=== PATIENT | female | born 1955 | race Caucasian/White ===

== ENCOUNTER 2017-12-18 19:51 | Emergency (ER) | payer OTHER ==
[~2017-12-18] VITALS: Ht 160 cm; Wt 104.3 kg
--- NOTE | ~2017-12-18 | EKG ---
[place] [address] [facility] [place] [address] ELECTROCARDIOGRAM REPORT Name: PEREZ BENJAMIN Room #: DEP [facility]#: [id number] Admission: 12/18/17 Attend Phys: Discharge: 12/18/17 Date of : 51 Report #: [id number] THIS REPORT FOR: //name// [facility] ED Test Date: 2017-12-18 Test Time: 20:15:59 Pat Name: PEREZ BENJAMIN Department: Room: Gender: F Systems Software Specialist: Nickie GUNN : 1955 Requested By: Onesimo Alvarez Order Number: [id number] MD: Josh Hollins Measurements Intervals [place] Rate: 76 P: 42 MA: 166 QRS: -2 QRSD: 95 T: 1 QT: 410 QTc: 462 Interpretive Statements Sinus rhythm Left ventricular hypertrophy Borderline T abnormalities, diffuse leads No previous ECG available for comparison Electronically Signed On 12-19-2017 7:49:52 BEHAVIORAL ANALYST by Josh Hollins [email or web address] <ELECTRONICALLY SIGNED> By: Josh Hollins MD, [facility] 12/19/17 0749 14 14 Josh Hollins MD, FACC /EPI
[~2017-12-18 19:51] MED LIST: ABILIFY15 MG PO; DEPAKOTE ER500 MG PO; LEXAPRO20 MG PO; METFORMIN HCL500 MG PO; OYSTER SHELL 51 EACH PO; PHENOBARBITAL64.8 MG PO; PHENOBARBITAL97.2 M2 PO; PRILOSEC20 MG PO; TRAZODONE HCL100 MG PO
[2017-12-18 20:25] LABS: ABSOLUTE NEUTROPHILS 5.2 thou/uL (1.4-8.2); BASOPHILS 0.8 % (0.0-2.0); EOSINOPHILS 1.4 % (0.0-3.0); HEMATOCRIT 39.2 % (37.0-47.0); HEMOGLOBIN 13.3 gm/dL (12.0-15.0); LYMPHOCYTES 30.5 % (24.0-44.0); MCH 30.9 pg (26.0-34.0); MCHC 33.8 g/dL (28.0-37.0); MCV 91.4 fL (80.0-100.0); MONOCYTES 6.9 % (1.0-8.0); PLATELET COUNT 296 thou/uL (150-400); POLYS 60.4 % (36.0-66.0); RBC 4.29 mil/uL (4.20-5.00); WBC 8.6 thou/uL (4.0-11.0)
[2017-12-18 20:49] LABS: URINE BLOOD 1+ (Negative); URINE CLARITY SL CLOUDY; URINE COLOR YELLOW; URINE GLUCOSE-RANDOM* NEGATIVE (Negative); URINE KETONES 1+ (Negative); URINE LEUKOCYTES-REFLEX NEGATIVE (Negative); URINE NITRITE-REFLEX NEGATIVE (Negative); URINE PROTEIN (DIPSTICK) NEGATIVE (Negative); URINE SPECIFIC GRAVITY 1.025 (1.005-1.035); URINE UROBILINOGEN 0.2 E.U./dl (0.2-1.0)
[2017-12-18 20:53] LABS: ICTOTEST (BILI CONFIRMATORY) Negative (Negative); URINE BILIRUBIN NEGATIVE (Negative)
[2017-12-18 21:02] LABS: CASTS None Seen /LPF (None Seen); CRYSTALS None Seen /LPF (None Seen); SQUAMOUS 4-10 Moderate /LPF (0-3)
[2017-12-18 21:03] LABS: BACTERIA-REFLEX >30 Many /HPF (None Seen); URINE RBC 0-2 Rare /HPF (0-2); URINE WBC-REFLEX 0-5 Rare /HPF (0-5)
[2017-12-18 21:12] LABS: ALBUMIN 3.3 g/dL (3.4-5.0); ANION GAP 6 mmol/L (7-16); BUN 22 mg/dL (7-18); CALCIUM 9.1 mg/dL (8.5-10.1); CHLORIDE 102 mmol/L (98-107); CO2 28 mmol/L (21-32); GLUCOSE 129 mg/dL (74-106); LIPASE 281 U/L (73-393); POTASSIUM 3.5 mmol/L (3.5-5.1); SGOT 35 U/L (15-37); SGPT 22 U/L (30-65); SODIUM 136 mmol/L (136-145); TOTAL BILIRUBIN 0.1 mg/dL (<0.1-1.0); TOTAL PROTEIN 8.4 g/dL (6.4-8.2); TROPONIN-I < 0.04 ng/mL (<0.06)
[2017-12-18] MEDS ORDERED: MACROBID 100 M100 M1 PO (21:33)
[2017-12-18] MEDS ORDERED: TESSALON PERLE100 MG PO (21:33)
[2017-12-18] MEDS ORDERED: TRAMADOL 50 MG50 MG PO (21:43)
[2018-07-23] MEDS ORDERED: AUGMENTIN 500-1 EACH PO (15:57)
[2018-07-23] MEDS ORDERED: MOBIC7.5 MG PO (16:00)
== END 2017-12-18 21:55 | disposition home or self-care (01) ==
LOC: ER 19:51
PROVIDERS: Physician Assistant
DX: J06.9 Acute upper respiratory infection, unspecified (principal); N39.0 Urinary tract infection, site not specified; G43.909 Migraine, unspecified, not intractable, without status migrainosus; F32.9 Major depressive disorder, single episode, unspecified; F10.99 Alcohol use, unspecified with unspecified alcohol-induced disorder

== ENCOUNTER 2018-05-20 21:05 | Emergency (ER) | payer OTHER ==
[~2018-05-20] VITALS: Ht 160 cm; Wt 108.9 kg
[~2018-05-20 21:05] MED LIST changes: +MACROBID 100 M100 M1 PO; +TESSALON PERLE100 MG PO; +TRAMADOL 50 MG50 MG PO
[2018-05-20 21:36] LABS: URINE BILIRUBIN NEGATIVE (Negative); URINE BLOOD NEGATIVE (Negative); URINE CLARITY CLEAR; URINE COLOR YELLOW; URINE GLUCOSE-RANDOM* NEGATIVE (Negative); URINE KETONES NEGATIVE (Negative); URINE LEUKOCYTES-REFLEX NEGATIVE (Negative); URINE NITRITE-REFLEX NEGATIVE (Negative); URINE PROTEIN (DIPSTICK) NEGATIVE (Negative); URINE SPECIFIC GRAVITY 1.015 (1.005-1.035); URINE UROBILINOGEN 0.2 E.U./dl (0.2-1.0)
[2018-05-20 22:07] LABS: ABSOLUTE NEUTROPHILS 5.7 thou/uL (1.4-8.2); BASOPHILS 0.8 % (0.0-2.0); EOSINOPHILS 1.3 % (0.0-3.0); HEMATOCRIT 36.7 % (37.0-47.0); LYMPHOCYTES 28.2 % (24.0-44.0); MCH 30.4 pg (26.0-34.0); MCHC 32.8 g/dL (28.0-37.0); MCV 92.7 fL (80.0-100.0); MONOCYTES 6.5 % (1.0-8.0); PLATELET COUNT 268 thou/uL (150-400); POLYS 63.2 % (36.0-66.0); RBC 3.96 mil/uL (4.20-5.00); RDW 14.4 % (10.5-14.5)
[2018-05-20 22:49] LABS: POTASSIUM 4.3 mmol/L (3.5-5.1)
[2018-05-20 22:55] LABS: ALBUMIN 2.9 g/dL (3.4-5.0); TOTAL BILIRUBIN 0.1 mg/dL (<0.1-1.0); TOTAL PROTEIN 7.6 g/dL (6.4-8.2)
[2018-05-20] MEDS ORDERED: ZOFRAN ODT4 MG PO (23:04)
[2018-05-20] MEDS ORDERED: BENTYL 20 MG TA20 M1 PO (23:09)
[2018-05-21 00:04] VITALS: BP 128/69
== END 2018-05-21 00:07 | disposition home or self-care (01) ==
LOC: ER 21:05
PROVIDERS: Physician Assistant
DX: R10.31 Right lower quadrant pain (principal); R11.0 Nausea; R19.7 Diarrhea, unspecified; F32.9 Major depressive disorder, single episode, unspecified

== ENCOUNTER 2019-07-06 22:36 | Emergency (ER) | payer OTHER ==
[~2019-07-06] VITALS: Ht 160 cm; Wt 99.3 kg
[~2019-07-06 22:36] MED LIST changes: +AUGMENTIN 500-1 EACH PO; +BENTYL 20 MG TA20 M1 PO; +MOBIC7.5 MG PO; +ZOFRAN ODT4 MG PO
[2019-07-07 00:03] LABS: ABSOLUTE NEUTROPHILS 5.2 thou/uL (1.4-8.2); EOSINOPHILS 0.5 % (0.0-3.0); HEMATOCRIT 37.2 % (37.0-47.0); HEMOGLOBIN 12.5 gm/dL (12.0-15.0); LYMPHOCYTES 35.2 % (24.0-44.0); MCH 31.7 pg (26.0-34.0); MCHC 33.6 g/dL (28.0-37.0); MCV 94.4 fL (80.0-100.0); MONOCYTES 6.1 % (1.0-8.0); PLATELET COUNT 282 thou/uL (150-400); POLYS 57.2 % (36.0-66.0); RBC 3.94 mil/uL (4.20-5.00); RDW 13.8 % (10.5-14.5); WBC 9.1 thou/uL (4.0-11.0)
[2019-07-07 00:09] LABS: ANION GAP 8 mmol/L (7-16); BUN 18 mg/dL (7-18); CALCIUM 9.4 mg/dL (8.5-10.1); CHLORIDE 101 mmol/L (98-107); CO2 29 mmol/L (21-32); CREATININE 0.9 mg/dL (0.6-1.0); GLUCOSE 94 mg/dL (74-106); SODIUM 138 mmol/L (136-145)
[2019-07-07 00:17] LABS: TROPONIN-I <0.06 ng/mL (<0.06)
[2019-07-07] MEDS ORDERED: PREDNISONE 20 M20 MG PO (00:36)
[2019-07-07] MEDS ORDERED: TESSALON PERLE100 MG PO (00:36)
[2019-07-07] MEDS ORDERED: VENTOLIN HFA INH8 GM INH (00:36)
[2019-07-07 00:39] VITALS: BP 132/42
--- NOTE | 2019-07-07 11:47 | EKG ---
[place] [address] [facility] [place] [address] ELECTROCARDIOGRAM REPORT Name: PEREZ BENJAMIN [facility] [id number] Admission: 07/06/19 Attend Phys: Discharge: 07/07/19 Date of : 51 Report #: [id number] THIS REPORT FOR: //name// [facility] ED Test Date: 2019-07-06 Test Time: 23:43:25 Pat Name: PEREZ BENJAMIN Department: Room: Gender: F Clinical Microbiologist: MANDA : 1955 Requested By: Eliel Monroy Order Number: [id number] MD: Salvador Duran Measurements Intervals [place] Rate: 72 P: 29 FL: 157 QRS: 9 QRSD: 82 T: 28 QT: 398 QTc: 436 Interpretive Statements Sinus rhythm LVH by voltage Compared to ECG 12/18/2017 20:15:59 T-wave abnormality no longer present Electronically Signed On 07-07-2019 11:47:03 CDT by Salvador Duran [email or web address] <ELECTRONICALLY SIGNED> By: Salvador Duran MD 07/07/19 1147 [id number] MD TURNER Lopez
== END 2019-07-07 00:46 | disposition home or self-care (01) ==
LOC: ER 22:36
PROVIDERS: Emergency Medicine
DX: J40 Bronchitis, not specified as acute or chronic (principal); F32.9 Major depressive disorder, single episode, unspecified

== ENCOUNTER 2020-02-07 20:42 | Emergency (ER) | payer OTHER ==
[~2020-02-07] VITALS: Ht 160 cm; Wt 102.5 kg
--- NOTE | ~2020-02-07 | EMS ---
[address] [address] EMS Patient Care Report Name: PEREZ BENJAMIN Room #: DEP [facility]#: [id number] Admission: 02/07/20 Attend Phys: Discharge: 02/07/20 Date of : 51 Report #: [id number] THIS REPORT FOR: //name// Report Transmitted: 02/08/2020 05:27 EMS Care Summary [place], [place]/[facility] Incident [id number] @ 02/07/2020 20:06 Incident Location [address] [place] [address] Patient PEREZ BENJAMIN Female, 64 Years 1955 Patient Address [address] [place] [address] Patient History None Reported, Patient Allergies No known allergies, Patient Medications None Reported, Chief Complaint ABDOMINAL PAIN Disposition Transported No Lights/[place] Dispatch Reason Sick Person Transported To [facility] Narrative PT STATES THAT PT HAS ABDOMINAL PAIN IS NAUSEATED AND HAS VOMITED. PT DENIES NAY RECENT FEVER. PT DENIES SOA. PT DENIES SHAI PAIN. PT HAS NO OTHER OBVIOUS ABNORMALITIES. [address] [address] EMS Patient Care Report Name: PEREZ BENJAMIN Room #: DEP [facility]#: [id number] Admission: 02/07/20 Attend Phys: Discharge: 02/07/20 Date of : 51 Report #: [id number] PT WAS FOUND WALKING TO THE AMBULANCE. PT SPOKE IN FULL AND COMPLETE SENTENCES.PT ABLE TO STAND AND PIVOT TO GET ONTO EMS COT. PT HAS NO OTHER OBVIOUS ABNORMALITIES. Initial Vitals @20:29P: 81,R: 18,BP: 131/72,Pain: 0/10,GCS: 15,SpO2: 91,Revised Trauma: 12, @20:28P: 82,R: 18,BP: 91/34,Pain: 0/10,GCS: 15,CO: 0,SpO2: 93,Revised Trauma: 12, Assessments @20:22MENTAL:Person Oriented,Time Oriented,Place Oriented,Event Oriented,SKIN:HEENT:Eyes: Left Pupil: 4-mm,Eyes: Right Pupil: 4-mm,Head/Face: No Abnormalities,Neck/Airway: No Abnormalities,LUNG SOUNDS:General: No Abnormalities,ABDOMEN:General: No Abnormalities,PELVIS//GI:EXTREMITIES:Capillary Refill: Right Upper: < 2 Sec,Left Arm: No Abnormalities,Right Arm: No Abnormalities,Left Leg: No Abnormalities,Right Leg: No Abnormalities,PULSE:Radial: 2+ Normal,NEURO:No Abnormalities, Impression Abdominal Pain Timeline 20:03,Call Received 20:03,Dispatch Notified 20:06,Dispatched 20:07,En Route 20:20,On Scene 20:21,At Patient 20:24,Depart Scene 20:28,BP: 91/34 M,PULSE: 82,RR: 18 R,SPO2: 93 Ox,ETCO2: ,BG: ,PAIN: 0,GCS: 15, 20:29,BP: 131/72 M,PULSE: 81,RR: 18 R,SPO2: 91 Ox,ETCO2: ,BG: ,PAIN: 0,GCS: 15, 20:46,At Destination 20:53,Call Closed Disclaimer v1.1 Copyright 2020 [employer] This EMS Care Summary contains data elements from the applicable legal record (which may be displayed differently). It is designed to provide pertinent information for the following purposes: continuity of care, clinical quality, and state data reporting. The complete legal record is available to ED staff and administrators of the receiving hospital in [employer] Patient Tracker. All data is provided "as is."
[~2020-02-07 20:42] MED LIST changes: +PREDNISONE 20 M20 MG PO; +VENTOLIN HFA INH8 GM INH
[2020-02-07 21:12] LABS: ABSOLUTE NEUTROPHILS 3.8 thou/uL (1.4-8.2); BASOPHILS 0.6 % (0.0-2.0); EOSINOPHILS 1.1 % (0.0-3.0); HEMATOCRIT 38.6 % (37.0-47.0); HEMOGLOBIN 12.6 gm/dL (12.0-15.0); LYMPHOCYTES 40.8 % (24.0-44.0); MCH 30.7 pg (26.0-34.0); MCHC 32.8 g/dL (28.0-37.0); MCV 93.7 fL (80.0-100.0); MONOCYTES 6.6 % (1.0-8.0); PLATELET COUNT 314 thou/uL (150-400); POLYS 50.9 % (36.0-66.0); RBC 4.11 mil/uL (4.20-5.00); WBC 7.5 thou/uL (4.0-11.0)
[2020-02-07 21:21] LABS: CALCIUM 8.5 mg/dL (8.5-10.1); CREATININE 0.8 mg/dL (0.6-1.0); POTASSIUM 3.9 mmol/L (3.5-5.1)
[2020-02-07 21:26] LABS: ALBUMIN 3.3 g/dL (3.4-5.0); TOTAL BILIRUBIN 0.1 mg/dL (<0.1-1.0); TOTAL PROTEIN 7.7 g/dL (6.4-8.2)
[2020-02-07 22:02] LABS: URINE BILIRUBIN NEGATIVE (Negative); URINE BLOOD TRACE (Negative); URINE CLARITY CLEAR; URINE COLOR YELLOW; URINE GLUCOSE-RANDOM* NEGATIVE (Negative); URINE KETONES NEGATIVE (Negative); URINE LEUKOCYTES-REFLEX NEGATIVE (Negative); URINE NITRITE-REFLEX NEGATIVE (Negative); URINE PROTEIN (DIPSTICK) NEGATIVE (Negative); URINE SPECIFIC GRAVITY 1.025 (1.005-1.035); URINE UROBILINOGEN 0.2 E.U./dl (0.2-1.0)
[2020-02-07] MEDS ORDERED: PROBIOTIC1 EAC7 PO (22:14)
[2020-02-07] MEDS ORDERED: BENTYL 20 MG TA20 M1 PO (22:14)
[2020-02-07 22:33] VITALS: BP 128/50
== END 2020-02-07 22:35 | disposition home or self-care (01) ==
LOC: ER 20:42
PROVIDERS: Nurse Practitioner Family
DX: K52.9 Noninfective gastroenteritis and colitis, unspecified (principal); Z79.899 Other long term (current) drug therapy

== ENCOUNTER 2020-07-31 17:50 | Emergency (ER) | payer OTHER ==
[~2020-07-31] VITALS: Ht 68.6 cm; Wt 95.3 kg
[~2020-07-31 17:50] MED LIST changes: +PROBIOTIC1 EAC7 PO
[2020-07-31] MEDS ORDERED: DEPAKOTE ER500 M1 PO (19:31)
[2020-07-31] MEDS ORDERED: PHENOBARBITAL97.2 M2 PO (19:32)
[2020-07-31 19:44] VITALS: BP 133/56
== END 2020-07-31 19:45 | disposition home or self-care (01) ==
LOC: ER 17:50
DX: G40.89 Other seizures (principal); Z79.899 Other long term (current) drug therapy

== ENCOUNTER 2021-05-15 21:32 | Emergency (ER) | payer OTHER ==
[~2021-05-15] VITALS: Ht 160 cm; Wt 95.3 kg
[~2021-05-15 21:32] MED LIST changes: +DEPAKOTE ER500 M1 PO
[2021-05-15] MEDS ORDERED: MOBIC15 MG PO (22:49)
== END 2021-05-15 23:43 | disposition home or self-care (01) ==
LOC: ER 21:32
DX: S93.401A Sprain of unspecified ligament of right ankle, initial encounter (principal); M25.561 Pain in right knee; R07.89 Other chest pain; G40.909 Epilepsy, unspecified, not intractable, without status epilepticus; F32.9 Major depressive disorder, single episode, unspecified; Z79.899 Other long term (current) drug therapy; W19.XXXA Unspecified fall, initial encounter; Y93.89 Activity, other specified; Y92.89 Other specified places as the place of occurrence of the external cause; Y99.8 Other external cause status

== ENCOUNTER 2021-08-10 16:05 | Inpatient (IN) | payer OTHER ==
[~2021-08-10] VITALS: Ht 160 cm; Wt 104.8 kg
--- NOTE | ~2021-08-10 | EEG ---
[facility] [place] [address] ELECTROENCEPHALOGRAM Name: PEREZ BENJAMIN Room #: 447-P ADM IN M.R.#: [id number] Admission: 08/10/21 Attend Phys: Elmer Herrera MD Discharge: Date of : 51 Report #: [id number] THIS REPORT FOR: //name// DATE OF SERVICE: 08/14/2021 This patient is being evaluated for the possibility of seizure. EEG was done by placing the electrode by standard 10-20 system of electrode placement. Both referential and sequential montages were used for recording. Background activity in this patient's EEG is about 9 Hz and 30 microvolt. The patient went to sleep that is associated with bilateral slowing and vertex sharp waves. Photic stimulation is unremarkable. Throughout the record, no active epileptiform activity was noticed. IMPRESSION: This EEG is intermixed with some theta range slowing on both sides. There is a nonspecific abnormality which can occur with encephalopathy, effect of psychotropic medication, dementia, drowsiness, etc. No active epileptiform activity was noticed. Thank you very much for this referral. By: 1106 1220 Leodan Tee MD /nt
--- NOTE | ~2021-08-10 | HC ---
[facility] [place] [address] CONSULTATION Name: PEREZ BENJAMIN Room #: 447-P ADM IN .R.#: [id number] Admission: 08/10/21 Attend Phys: Elmer Herrera MD Discharge: Date of : 51 Report #: [id number] THIS REPORT FOR: cc: Cookie Rasmussen DNP, Mary E. DNP Khosla, Parveen K. MD ~ DATE OF SERVICE: 08/14/2021 HISTORY OF PRESENT ILLNESS: This is a 66-year-old female patient who was discussed with Dr. Joe. I talked to the nurse looking after this patient. I talked to the pharmacist and discussed the patient with him. This patient says that she has seizures since . She does not know the etiology of it. She used to see a neurologist, but has not seen a neurologist for some time. She has taken phenobarbital virtually all her life. They have tried to convert it to some other form of seizure medication, but she either could not tolerate it or it was ineffective. She also takes Depakote, but only a small dose. Neurology consultation is requested because pharmacy does not carry phenobarbital and they do carry IV phenobarbital and hospitalist felt uncomfortable giving the patient phenobarbital IV. She says the seizures are frequent, but if she takes phenobarbital, she does not have any seizures at all. She has seizure. She has bit her tongue. REVIEW OF SYSTEMS: Also positive for cerebral palsy, diabetes, depression and epilepsy. She also has some musculoskeletal abnormality of the right leg and now she has a fracture there. PAST MEDICAL HISTORY: Positive for seizure. FAMILY HISTORY: Positive for seizure. SOCIAL HISTORY: She says she does not drink alcohol on a regular basis. PHYSICAL EXAMINATION: Indicate she is alert, responsive, able to follow simple commands. Her speech looks intact. Cranial nerve examination II-XII looks unremarkable. Neuromuscular examination is difficult because of the patient's fracture. She feels everything is baseline except the right leg. No cardiac or respiratory changes. She is morbidly obese. Blood pressure is 129/62, respirations 16, pulse is 86, temperature is 99.4. She said she had imaging study multiple times and one of them was recently a few months ago. I do not know where it was done. She does not know where it was done either. IMPRESSION: It is very difficult to tell if the patient has all the epileptic seizure or some of those seizures were nonepileptiform event. That question need to be addressed as an outpatient. Presently, I will leave her on the same [address] [address] CONSULTATION Name: PEREZ BENJAMIN Room #: 447-P [facility] IN ..#: [id number] Admission: 08/10/21 Attend Phys: Elmer Herrera MD Discharge: Date of : 51 Report #: [id number] phenobarbital dosages. If she did not have any imaging study of the brain, we can do that, but I will get an EEG done to see if she has any active seizure activity. We made a lot of effort and I talked to the pharmacist myself. He said he will try, but he does not think he can get the phenobarbital even from other pharmacy. The patient made multiple calls and ultimately she was able to convince some of the relative to bring the medication. If they do that, that problem will be solved but as an outpatient, the question need to be addressed if they are all seizure or some of them are non-epileptiform event and if she does not have any imaging study of the brain that can be done to complete the workup. More than 50 minutes of time was spent taking care of this patient today and majority was spent counseling and coordinating care. By: 1201 1856 Leodan Tee MD /nt
[~2021-08-10 16:05] MED LIST changes: +MOBIC15 MG PO
[2021-08-10 16:08] VITALS: BP 133/91
[2021-08-11 01:10] LABS: BASOPHILS 0.4 % (0.0-2.0); EOSINOPHILS 0.4 % (0.0-3.0); HEMOGLOBIN 11.1 gm/dL (12.0-15.0); LYMPHOCYTES 36.2 % (24.0-44.0); MCH 32.2 pg (26.0-34.0); MCHC 33.6 g/dL (28.0-37.0); MCV 95.6 fL (80.0-100.0); MONOCYTES 8.9 % (1.0-8.0); PLATELET COUNT 249 thou/uL (150-400); POLYS 54.1 % (36.0-66.0); RBC 3.46 mil/uL (4.20-5.00); RDW 14.3 % (10.5-14.5); WBC 9.3 thou/uL (4.0-11.0)
[2021-08-11 01:14] LABS: CALCIUM 7.8 mg/dL (8.5-10.1); CREATININE 0.7 mg/dL (0.6-1.0); POTASSIUM 3.9 mmol/L (3.5-5.1)
--- NOTE | 2021-08-11 07:00 | NUR ---
faxed ed summary to [facility].
--- NOTE | 2021-08-11 07:17 | NUR ---
TOOK OVER CARE FROM JADE LUQUE AT THIS TIME
[2021-08-11 07:20] VITALS: BP 115/55
--- NOTE | 2021-08-11 14:34 | NUR ---
PT ARRIVED ON FLOOR AROUND 0900. PT ALERT X ORIENTED X 4. ON 2L/O2/NC.FRACTURED RT ANKLE, ICE PACK APPLIED AND ANKLE RAISED ABOVE THE HEART LEVEL. IV RT AC WITH NS/80MLS/HR. NPO. PAIN PARTIALLY CONTROLLED BY PAIN MEDICINE. FALL PRECAUTION IN PLACE. GIVEN REPODT TO OR NURSE, MAY BE HAVING SURGERY AFTER 1600. ON SEIZURE PRECAUTION. RN LET DR. CATALAN AROUND 1130 THAT PT IS ON SEIZURE MEDICATION AT HOME, SAID HE WILL PUT AN ORDER IN THE EMAR. PUT AN ORDER FOR DIVALPROEX AROUND 1330. WAITING TO RECEIVE IT FROM PHARMACY(TALKED TO PHARMACIST AROUND 1430)
--- NOTE | 2021-08-11 15:32 | NUR ---
PT ADMITTED RELATED TO RIGHT ANKLE FRACTURE S/P FALL. CM MET WITH PT AT BEDSIDE THIS DAY. PT APPEARED TO BE A&O X4. CM ROLE INTRODUCED. PT INDICATED THAT SHE LIVES ALONE IN AN APARTMENT WITH ELEVATOR ACCESS. SHE INDICATED SHE HAD BEEN USING A 4[facility] TO ASSIST WITH MOBILITY E TAILER. PT INDICATED SHE HAD BEEN INDEPENDENT WITH GAIT AND ADLS E TAILER. PT INDICATED SHE HAS HOMEMAKER SERVICES THROUGH [employer]. ORTHO IS PLANNING TO DO AN ORIF AND INDICATED THAT PT WILL BE NWB FOR 6 WEEKS POST PROCEDURE. CM INDICATED THIS TO PT AND ASKED IF SHE WOULD BE RECEPTIVE TO POST ACUTE CARE STAY IF RECOMMENDED UPON DC AND PT INDICATED SHE WOULDN'T BE. SHE INDICATED SHE WANTS A WC AND PLANS TO RETURN HOME WITH HER FRIEND WHO IS CURRENTLY STAYING WITH HER. SHE INDICATED HER SON KLAUDIA BENJAMIN IS HER EMERGANCY CONTACT . CM FOLLOWING REGARDING DC PLANNING.
[2021-08-11 16:38] VITALS: BP 128/42
[2021-08-11 19:13] VITALS: BP 147/50
--- NOTE | 2021-08-12 02:29 | NUR ---
PT CARE ASSUMED WITH PT IN BED WATCHING TV AT 1900.PT IS A/O X4.PT IS ON BEDREST AND X2 ASSIST WITH CARE.PT HAS AN IMMOBILIZER ON RT LE.PT NPO FROM MIDNIGHT.IV ACCESS ON RT AC WITH NS AT 100CC/HR.PAIN WITH MOVEMENT.PT ON 2L OF O2 VIA NC.WILL CONTINUE TO MONITOR PER POC
[2021-08-12 04:50] VITALS: BP 119/62
[2021-08-12 07:48] VITALS: BP 121/54
--- NOTE | 2021-08-12 15:16 | NUR ---
TODAY THIS PT HAS BEEN DOWN IN SURGERY SINCE 1100 A.M. FOR HER R ANKLE. SHE HAD BEEN TAKING HER MEDICATIONS FINE WITH NO STATED PAIN AND STABLE VS. SHE HAS USED THE BEDPAN ONCE BEFORE SHE WENT DOWN TO SURGERY AND HAS OTHERWISE BEEN ASLEEP BEFORE SHE WENT DOWN TO SURGERY.
--- NOTE | 2021-08-12 15:53 | NUR ---
PT WENT FOR ORIF THIS AFTERNOON. PT AN OT TO ASSESS POST PROCEDURE. CM FOLLOWING REGARDING DC PLANNING.
[2021-08-12 18:00] VITALS: BP 141/62
--- NOTE | 2021-08-12 18:17 | O ---
[address] [address] OPERATIVE REPORT Name: PEREZ BENJAMIN Room #: 450-P ADM IN M.R.#: [id number] Admission: 08/10/21 Attend Phys: Elmer Herrera MD Discharge: Date of : 51 Report #: [id number] THIS REPORT FOR: cc: Cookie Rasmussen DNP, Mary E. DNP McCabe, Michael P. MD ~ DATE OF SERVICE: 08/10/2021 SERVICE: Orthopedics. FACILITY: [facility]. SURGEON: Eliel Luna MD CONCRETE CARPENTER: Savanna Saravia NP INDICATIONS FOR CONCRETE CARPENTER: Extremities positioning, provisional fixation, provisional reduction and wound closure and assistance with splinting. PREOPERATIVE DIAGNOSES: 1. Status post same level fall. 2. Right ankle trimalleolar fracture dislocation. 3. Morbid obesity with body mass index of 41. 4. Diabetes. POSTOPERATIVE DIAGNOSES: 1. Status post same level fall. 2. Right ankle trimalleolar fracture dislocation. 3. Morbid obesity with body mass index of 41. 4. Diabetes. PROCEDURE PERFORMED: Open reduction internal fixation right trimalleolar ankle fracture dislocation with medial and lateral fixation. COMPLICATIONS: None. DRAINS: None. SPECIMENS: None. ANESTHESIA: General. IMPLANTS: Hawk and Nephew locking 3.5/2.7 mm distal fibular locking plate laterally with 4-0 cannulated screws medially. HISTORY: The patient presented to the [facility] after falling [address] [place] [address] OPERATIVE REPORT Name: PEREZ BENJAMIN Room #: 450-P [facility] IN ..#: [id number] Admission: 08/10/21 Attend Phys: Elmer Herrera MD Discharge: Date of : 51 Report #: [id number] while getting into her car. She sustained an ankle fracture dislocation. She underwent closed reduction and splinting, was admitted to the hospital. She is indicated for surgical treatment. Risks, benefits, alternatives and indications were discussed with her in detail. Risks include but are not limited to pain, bleeding, infection, malunion, nonunion, injury to nerves or blood vessels, persistent pain despite surgical repair, stiffness, need for further surgery as well as complications related to anesthesia up to and including mortality. Despite the risks, she wished to proceed. PROCEDURE IN DETAIL: After right lower extremity was correctly identified in the preoperative holding area as the operative extremity, the patient was taken to the operating room. General anesthesia was induced without complication. She was padded appropriately. Prophylactic antibiotics were administered in appropriate time. Tourniquet was applied to right leg. Right lower extremity was then prepped and draped in standard sterile fashion. Timeout procedure performed. Esmarch was used, tourniquet inflated to 300 mmHg. A standard lateral approach was made to the ankle after localization of the fracture level was performed with the C-arm. The patient has morbid obesity and has a significant soft tissue envelope around the ankle that is quite deep. An additional incision, soft tissue work was required in order to protect vital structures and exposure. Full-thickness skin flaps were developed and the dissection was taken down to the fibula. Fracture was evaluated and opened. It was debrided of fracture hematoma and a provisional reduction maneuver was performed. There was a very comminuted fracture at the level of the anterior tibiofibular ligament. There was comminution here and there was a displaced cortical fragment anteriorly. There was a cortical flowers posteriorly, but because of the comminution anteriorly, there was not enough bone to perform a lag screw for provisional fixation and so I could not do a lag screw with a neutralization plate unfortunately. The comminution required that the fracture be established to length and then reduced and then plated in a bridge fashion with the locking plate with hybrid fixation. First to reestablish length, I used a fracture reduction clamp to anatomically reduce the fracture, but as stated, there was not enough bony real estate to accommodate an interfragmentary compression screw and so I confirmed the reestablishment of the length of the fibula and ran a K-wire across the distal segment into the talus to hold the length. We then selected a 5-hole Hawk and Nephew 3.5/2.7 mm distal fibular locking plate and placed that on the lateral aspect of the ankle. With the provisional fixation in place, the C-arm was brought in. I assessed the reduction and the hardware position on multiple planes of x-ray to confirm it was in the appropriate position. The reduction was anatomic at this point, so the plate was then fixed to the distal segment with the locking screws initially and then with the k-wire in place, the length had been reestablished. I then placed a nonlocking screw on the shaft proximally and compressed the plate to the shaft. With the orientation of the fracture, although I could not perform an interfragmentary compression screw, I was able to lag the fracture through the plate at the [facility] [address] [place] [address] OPERATIVE REPORT Name: PEREZ BENJAMIN Room #: 450-P ADM IN M.Tomasz.#: [id number] Admission: 08/10/21 Attend Phys: Elmer Herrera MD Discharge: Date of : 51 Report #: [id number] distal two shaft screw holes and this provided compression across the fracture and restored the anatomic reduction and then the remaining screws placed in the shaft and in the distal segment were locking screws. The cortical fragment anteriorly had a portion of the anterior tibiofibular ligament on it and it was necessary for stability and was cortical over basically the anterior one-third of the fibula in this location and had avulsed, so I felt that a reduction of this was important. This had been reflected anteriorly to allow access to the join, to irrigate the joint and debride any ligamentous tissue and capsular tissue. This was then flipped back down and then reduced and held, reduced manually. Then, I used a 1.6 mm K-wire and advanced it across the fracture in a proximal anterior to distal posterior orientation using fluoroscopy to assist. I was happy with the position and then cut the wire just short of it penetrating the far cortex and then I used a reinforcing steel worker wire mesh to bend the wire down at the fibula and then malleted down and compressed it into the bone, providing a stable fixation with the curved pin placed to prevent rotation of the pin and the fracture. The final screws were then placed and I assessed the reduction on x-ray as well as the fibular length and was happy with the appearance. The cotton test was performed and was negative. A longitudinal incision was then made based over the medial side of the ankle and full-thickness skin flaps were developed. Dissection was taken down to the fracture. The obliquity of the fracture was such that medial malleolar cannulated compression screws will provide optimal and satisfactory fixation, so I displaced the fracture, irrigated the joint and the fracture hematoma. There was some ligamentous and synovial tissue that was resected with a rongeur. There was a loose chondral fragment from the medial talus that unfortunately needed to be resected as well and then the joint was irrigated once more. I then manually reduced the medial malleolus and then in a percutaneous fashion, ran two K-wires across the fracture. I confirmed the position of these K-wires under fluoroscopy on multiple views including a cross table lateral and then overdrilled the near cortex and then advanced the cannulated partially-threaded Hawk and Nephew screws across the fracture. Her bone quality is good, so I did not need any stronger screw fixation such as cortical screws across the tibia or larger screws. Final x-rays were taken after the completed repair was carefully evaluated. I was happy with the appearance on AP, lateral and mortise view confirming that the hardware was all appropriately positioned. The ankle was thoroughly irrigated. The skin was closed with 2-0 Vicryl followed by skin elisha. The percutaneous stab incisions for the medial screws were closed with nylon. A sterile well-padded short-leg splint was then applied and then the patient was awakened from anesthesia and taken to recovery room in stable condition. There were no complications. All counts were reported as correct. POSTOPERATIVE PLAN: She will be nonweightbearing for 6 weeks. She will be in the splint until her first postoperative visit around [address] [address] OPERATIVE REPORT Name: PEREZ BENJAMIN Room #: 450-P [facility] IN .R.#: [id number] Admission: 08/10/21 Attend Phys: Elmer Herrera MD Discharge: Date of : 51 Report #: [id number] We will take the splint down, remove the elisha and then switch her to a short-leg cast, which she will wear until the end of the 6 weeks. <ELECTRONICALLY SIGNED> By: Eliel Luna MD 08/12/21 1817 1508 1630 Eliel Luna MD /nt
[2021-08-12 19:04] VITALS: BP 148/68
--- NOTE | 2021-08-13 02:22 | NUR ---
PT CARE ASSUMED WITH PT IN BED WATCHING TV.PT IS A/O X4.PT IS UP WITH X2 ASSIST AND HAS AN IMMOBILIZER ON RT LE .PT USES A BEDPAN TO VOID.PT CALLS FOR HELP APPROPRIETELY.PT ON 2L OF O2 VIA NC.PT IS ACCUCHECK ACHS.PT 4 SIDE RAILS UP AND PADDED FOR SEIZURE PRECAUTION.IV ACCESS ON RT AC WITH NS AT 80CC/HR.WILL CONTINUE TO MONITOR PER POC
[2021-08-13 05:18] LABS: HEMATOCRIT 32.1 % (37.0-47.0); HEMOGLOBIN 10.7 gm/dL (12.0-15.0); MCH 31.8 pg (26.0-34.0); MCHC 33.4 g/dL (28.0-37.0); MCV 95.3 fL (80.0-100.0); RBC 3.37 mil/uL (4.20-5.00); RDW 13.8 % (10.5-14.5); WBC 7.8 thou/uL (4.0-11.0)
[2021-08-13 05:34] LABS: CALCIUM 8.1 mg/dL (8.5-10.1); CREATININE 0.6 mg/dL (0.6-1.0); POTASSIUM 3.6 mmol/L (3.5-5.1)
[2021-08-13 06:03] VITALS: BP 132/51
[2021-08-13 07:38] VITALS: BP 126/46
--- NOTE | 2021-08-13 11:34 | NUR ---
PT HAD ANKLE ORIF YESTERDAY. PT SAW HIM THIS AM AND SHE INDICATED THAT SHE IS NOW RECEPTIVE TO SKILLED POST ACUTE CARE STAY. CM PROVIDED [facility] DUAL COMPLETE SNF LIST FOR REVIEW. CM TO FOLLOW UP AND FAX REFERRALS SHE REQUESTS. CM FOLLOWING REGARDING DC PLANNING.
--- NOTE | 2021-08-13 14:53 | NUR ---
TODAY THIS PT HAS HAD SOME STATED PAIN IN WHICH SHE HAS BEEN MEDICATED FOR. PHYSICIAN WAS CALLED ABOUT THE FIRST DRESSING CHANGE ON HER ANKLE AND THE RESPONSE WAS THAT THEY ARE GOING TO CHANGE THE DRESSING AT HER FIRST FOLLOW UP OFFICE VISIT. SHE HAS OTHERWISE BEEN ON AND OFF SLEEP SHE REALLY HASN'T EATEN ANY MEALS TODAY BESIDES THE FRUIT. SHE HAS BEEN SEEN BY PHYSICAL THERAPY AND SHE HAS AGREED UPON PLACEMENT DUE TO HER NON BEARING ON HER RIGHT ANKLE. SHE OTHERWISE AWAITS FOR THE NEXT PLAN.
[2021-08-13 15:47] VITALS: BP 128/43
[2021-08-13 20:14] VITALS: BP 124/48
--- NOTE | 2021-08-14 01:24 | NUR ---
ASSUMED CARE OF PT AT SHIFT CHANGE. PT IS AOX3-4 AND LETS NEEDS BE KNOWN. FALL PRECAUTION IN PLACE. PT IS NWB IN RLE. RLE SPLINT IN PLACE. PT PREPORTS RLE PAIN BUT IS ABLE TO SLEEP. PT DENIED NAUSEA. 2L O2 VIA NC CONTINUED. PT WAS ABLE TO VOID AND HAVE A BM VIA BEDPAIN. IVF CONTINUED. PT WAS ABLE TO GET COMFORTABLE AND SLEEP PART OF THE SHIFT. VSS AND NO S/S OF ACUTE DISTRESS. WILL CONTINUE TO MONITOR.
[2021-08-14 07:22] VITALS: BP 129/62
[2021-08-14 13:02] LABS: ABSOLUTE NEUTROPHILS 4.1 thou/uL (1.4-8.2); BASOPHILS 1.2 % (0.0-2.0); EOSINOPHILS 0.4 % (0.0-3.0); HEMATOCRIT 29.1 % (37.0-47.0); HEMOGLOBIN 9.6 gm/dL (12.0-15.0); LYMPHOCYTES 32.8 % (24.0-44.0); MCHC 33.2 g/dL (28.0-37.0); MCV 96.4 fL (80.0-100.0); MONOCYTES 11.2 % (1.0-8.0); PLATELET COUNT 227 thou/uL (150-400); POLYS 54.4 % (36.0-66.0); RBC 3.01 mil/uL (4.20-5.00); WBC 7.5 thou/uL (4.0-11.0)
[2021-08-14 13:11] LABS: ALBUMIN 2.2 g/dL (3.4-5.0); CALCIUM 7.9 mg/dL (8.5-10.1); CREATININE 0.6 mg/dL (0.6-1.0); MAGNESIUM 1.9 mg/dL (1.8-2.4); POTASSIUM 3.6 mmol/L (3.5-5.1); TOTAL BILIRUBIN 0.2 mg/dL (0.2-1.0); TOTAL PROTEIN 6.3 g/dL (6.4-8.2)
[2021-08-14 15:21] VITALS: BP 133/51
--- NOTE | 2021-08-14 17:31 | NUR ---
PT RECEIVED FROM [facility] AT CHANGE OF SHIFT. PER REPORT PT INSTUCTED TO HAVE FAMILY BRING IN HER [facility] FOR[facility]. PT STATED THERE WAS NO FAMILY TO BRING MED AND SHE WAS FEELING DIZZY LIKE SHE SOMETIMES FEELS BEFORE A SEIZURE. SEIZURE PRECAUTIONS IN PLACE. NOTIFIED OF ABOVE AND DR. ACUNA CONSULTED. PT REFUSING TO TAKE KEPPRA WHILE SHE IS HERE. DIZZINESS STOPPED AND NO SEIZURE ACTIVITY NOTED OR STATED PER PT. EEG COMPLETED AT BEDSIDE. PT STATES STILL NO ONE TO BRING IN HER OWN MED. PAIN CONTROLLED W/ PAIN MED. EATING AND DRINKING WELL. USING BEDPAN.
[2021-08-14 21:40] VITALS: BP 115/46
[2021-08-15 05:46] VITALS: BP 140/56
--- NOTE | 2021-08-15 05:57 | NUR ---
PT STAYED UP TO 0300AM WATCHING TV, REPORTED PAIN ON THE LEFT FOOT, PRN MEDICATION ADMINISTERED, CONSIDERED TO SLEEP AT 0340AM. TOOK MEDICATIONS WELL NO ADVERSE REACTION NOTED, WILL CONTINUE TO MONITOR.
[2021-08-15 08:25] VITALS: BP 136/56
[2021-08-15 10:52] LABS: HEMATOCRIT 29.3 % (37.0-47.0); HEMOGLOBIN 9.6 gm/dL (12.0-15.0); MCH 31.7 pg (26.0-34.0); MCHC 32.9 g/dL (28.0-37.0); MCV 96.4 fL (80.0-100.0); RBC 3.04 mil/uL (4.20-5.00); RDW 13.8 % (10.5-14.5); WBC 6.9 thou/uL (4.0-11.0)
--- NOTE | 2021-08-15 11:10 | NUR ---
A/O X 4. 2 L O2 VIA NASAL CANNULA. BEDBOUND. NONWEIGHT BEARING RIGHT FOOT. RIGHT FOOT/ANKLE WRAPPED WITH KERLIX, ROSEANN WRAP-NO DRAINAGE NOTED ON DRESSING. EDEMA RIGHT FOOT. CAP REFILL BILATERAL TOES <3 SECS. NS INFUSING @ 80 MLS/HR VIA LEFT HAND IV, IV DRESSING DRY, CLEAN, AND INTACT. BS @ BREAKFAST 130. PAIN NOTED 10/10 RIGHT, OXYCODONE 10 MG GIVEN FOR PAIN. ON SEIZURE PRECAUTIONS, 02 ON, 4 BED RAILS UP AND PADDED. PATIENTS FRIEND WILL BE BRINGING HER PHENOBARBITAL UP. STILL AWAITING MEDICATION.
[2021-08-15 11:43] LABS: CALCIUM 8.2 mg/dL (8.5-10.1); CREATININE 0.5 mg/dL (0.6-1.0); POTASSIUM 3.8 mmol/L (3.5-5.1)
[2021-08-15 12:23] LABS: FOLIC ACID 9.9 ng/mL (8.6-58.9)
[2021-08-15] MEDS ORDERED: ASPIRIN EC325 M1 PO (14:31)
[2021-08-15] MEDS ORDERED: OXYCODONE HCL 55 MG PO (14:31)
[2021-08-15] MEDS ORDERED: PEPCID20 MG PO (14:32)
[2021-08-15] MEDS ORDERED: ACETAMINOPHEN325 M1 PO (14:32)
[2021-08-15 14:37] VITALS: BP 132/52
--- NOTE | 2021-08-15 15:08 | NUR ---
PER CASE MANAGEMENT. ALL TRANSPORT COMPANIES EXHAUSTED. NO AVAILABILITY TO TRANSPORT PATIENT TO [facility] TODAY. WILL SET UP TRANSPORT FOR DISCHARGE TOMORROW.
[2021-08-16 04:06] LABS: GLYCOHEMOGLOBIN (HGB A1C) 5.8 % (4.8-5.6)
== END 2021-08-15 17:57 | DRG 493 ==
LOC: ER 16:05 → EROBS 23:01 → 4W 23:01 → EROBS 23:02 → 4W 08-11 08:08 → 4S 08-14 06:56
PROVIDERS: Internal Medicine; Nurse Practitioner; ADMIT Hospitalist; ATTEND Hospitalist
DX: S82.851A Displaced trimalleolar fracture of right lower leg, initial encounter for closed fracture (principal); Z68.41 Body mass index [BMI] 40.0-44.9, adult; G40.909 Epilepsy, unspecified, not intractable, without status epilepticus; E11.9 Type 2 diabetes mellitus without complications; G80.9 Cerebral palsy, unspecified; D64.9 Anemia, unspecified; F41.9 Anxiety disorder, unspecified; E66.01 Morbid (severe) obesity due to excess calories; F32.9 Major depressive disorder, single episode, unspecified; W01.0XXA Fall on same level from slipping, tripping and stumbling without subsequent striking against object, initial encounter; Z20.822 Contact with and (suspected) exposure to COVID-19; Z86.69 Personal history of other diseases of the nervous system and sense organs; Y92.89 Other specified places as the place of occurrence of the external cause; Y99.8 Other external cause status; Y93.89 Activity, other specified; Z79.899 Other long term (current) drug therapy
CPT/HCPCS: 10040; 10195; 50010; 50101; 50386; 51412; 51741; 56527; 56528; 57091; 57180; 58473; 58475; 58526; 58527; 58987; 58988; 58989; 58990; 58991; 58992; 58993; 58994; 58995; 58996; 58997; 58998; 62110; 62900; 70005

== ENCOUNTER → 2021-12-24 | Outpatient (CLI) | payer OTHER ==
[~2021-12-24] MED LIST changes: +ACETAMINOPHEN325 M1 PO; +ASPIRIN EC325 M1 PO; +OXYCODONE HCL 55 MG PO; +PEPCID20 MG PO
== END ==
LOC: ULTRA 10:11
PROVIDERS: ATTEND Nurse Practitioner
DX: R60.0 Localized edema (principal)

== ENCOUNTER 2022-01-18 19:50 | Inpatient (IN) | payer OTHER ==
[~2022-01-18] VITALS: Ht 160 cm; Wt 95.9 kg
--- NOTE | ~2022-01-18 | EMS ---
[address] [address] EMS Patient Care Report Name: FELICITY BENJAMIN Room #: 462-P ADM IN M.R.#: [id number] Admission: 01/18/22 Attend Phys: Oliver Quiros DO Discharge: Date of : 51 Report #: [id number] THIS REPORT FOR: //name// Report Transmitted: 01/19/2022 05:46 EMS Care Summary [place], [place]/[facility] Incident [id number] @ 01/18/2022 18:51 Incident Location [id number] [place] [address] [address] Patient FELICITY BENJAMIN Female, 66 Years 1955 Patient Address [address] [place] [address] [place] [address] Patient History Epilepsy,Surgery,Depression, Patient Allergies No known allergies, Patient Medications Abilify, Trazodone, Phenobarbital, Chief Complaint Several falls over the last three days Disposition Transported No Lights/[place] Dispatch Reason Falls Transported To [facility] Narrative [facility] medic 41 was dispatched emergently to a residence for a fall. Upon arrival at the scene, this harvest supervisor and crew were granted access to the facility by another resident. This crew went to the patients' apartment door [address] [address] EMS Patient Care Report Name: FELICITY BENJAMIN Room #: 462-P ADM IN Shan#: [id number] Admission: 01/18/22 Attend Phys: Oliver Quiros DO Discharge: Date of : 51 Report #: [id number] and gained access with a flowers provided by a resident. Upon entering the residence a strong odor was noticed. The patient was found lying supine in her bed. As this harvest supervisor approached, the patient tracked and responded appropriately. The patients' mental status was immediately assessed and was found to be intact. The patient gave consent to assessment, treatment, and transport. A SAMPLE and OPQRST history was obtained. The patient stated that she had several falls over the last three days and was experiencing leg pain in the right lower extremity. The extremity was assessed and distal PMS was found to be intact. The patient was assisted to her feet and pivoted to the EMS cot. The patient was placed in a seated position and secure with seatbelts. The patient was then loaded into the unit and the stretcher was secured in place. The harvest supervisor partner then spoke to the patients' daughter via phone call. Daughter expressed concern that the patient was no longer able to take care of herself. This harvest supervisor placed the patients leg in a position of comfort and pain was decreased. VS were obtained and transport was initiated. Radio report was called by this [employer] to the receiving facility. Upon arrival at the facility, the patient was taken into the ER and slid onto a bed in ER RM 2. A bedside report was given to STATISTICAL GENETICIST. RN was made aware of patient living conditions and care was transferred. Medic 41 cleared the call. Initial Vitals @19:20P: 77,R: 16,BP: 112/66,Pain: 10/10,GCS: 15,CO: 0,SpO2: 98,Revised Trauma: 12, @19:34P: 83,R: 16,BP: 113/61,Pain: 6/10,GCS: 15,CO: 2,SpO2: 97,Revised Trauma: 12, @19:11P: 80,R: 16,Pain: 10/10,GCS: 15, Assessments @19:10MENTAL:Event Oriented,Time Oriented,Place Oriented,Person Oriented,SKIN:HEENT:Head/Face: No Abnormalities,Neck/Airway: No Abnormalities,LUNG SOUNDS:General: No Abnormalities,ABDOMEN:General: No Abnormalities,PELVIS//GI:EXTREMITIES:Capillary Refill: Right Lower: 3 Sec,Capillary Refill: Right Upper: 3 Sec,Right Leg: Other,Capillary Refill: Left Lower: 3 Sec,Capillary Refill: Left Upper: 3 Sec,Right Leg: Edema,Left Arm: No Abnormalities,Right Arm: No Abnormalities,Left Leg: No Abnormalities,PULSE:Pedal: 2+ Normal,Radial: 2+ Normal,NEURO:No Abnormalities,@19:40MENTAL:Place Oriented,Time Oriented,Event Oriented,Person Oriented,SKIN:HEENT:Head/Face: No Abnormalities,Neck/Airway: No Abnormalities,LUNG SOUNDS:General: No Abnormalities,ABDOMEN:General: No Abnormalities,PELVIS//GI:No Abnormalities,EXTREMITIES:Right Leg: Edema,Capillary Refill: Left Upper: < 2 Sec,Capillary Refill: Left Lower: < 2 Sec,Capillary Refill: Right Lower: < 2 Sec,Capillary Refill: Right Upper: < 2 Sec,Left Arm: No Abnormalities,Right Arm: No Abnormalities,Left Leg: No Abnormalities,PULSE:Radial: 2+ Normal,Pedal: 2+ Normal,NEURO: Impression [facility] [address] [place] [address] EMS Patient Care Report Name: FELICITY BENJAMIN Room #: 462-P ADM IN Ronnie.Tomasz.#: [id number] Admission: 01/18/22 Attend Phys: Oliver Quiros DO Discharge: Date of : 51 Report #: [id number] Extremity Pain Procedures @19:10 ALS Assessment Response: Unchanged @19:24 General Comments Response: Improved @19:15 Stretcher Response: Unchanged Timeline 18:45,Call Received 18:45,Dispatch Notified 18:51,Dispatched 18:51,En Route 19:02,On Scene 19:08,At Patient 19:10,ALS Assessment,Response: Unchanged 19:11,BP: / M,PULSE: 80,RR: 16 R,SPO2: Ox,ETCO2: ,BG: ,PAIN: 10,GCS: 15, 19:15,Stretcher,Response: Unchanged 19:20,BP: 112/66 M,PULSE: 77,RR: 16 R,SPO2: 98 Ox,ETCO2: ,BG: ,PAIN: 10,GCS: 15, 19:24,General Comments,Response: Improved 19:34,Depart Scene 19:34,BP: 113/61 M,PULSE: 83,RR: 16 R,SPO2: 97 Ox,ETCO2: ,BG: ,PAIN: 6,GCS: 15, 19:47,At Destination 20:36,Call Closed Disclaimer v1.1 Copyright 2021 [employer] This EMS Care Summary contains data elements from the applicable legal record (which may be displayed differently). It is designed to provide pertinent information for the following purposes: continuity of care, clinical quality, and state data reporting. The complete legal record is available to ED staff and administrators of the receiving hospital in [employer]'s Patient Tracker. All data is provided "as is."
--- NOTE | ~2022-01-18 | EMS ---
[address] [address] EMS Patient Care Report Name: FELICITY BENJAMIN Room #: 462-P ADM IN M.R.#: [id number] Admission: 01/18/22 Attend Phys: Oliver Quiros DO Discharge: Date of : 51 Report #: [id number] THIS REPORT FOR: //name// Report Transmitted: 01/19/2022 07:25 EMS Care Summary [place], [place]/[facility] Incident [id number] @ 01/18/2022 18:51 Incident Location [id number] [place] [address] [address] Patient FELICITY BENJAMIN Female, 66 Years 1955 Patient Address [address] [place] [address] [place] [address] Patient History Epilepsy,Surgery,Depression, Patient Allergies No known allergies, Patient Medications Abilify, Trazodone, Phenobarbital, Chief Complaint Several falls over the last three days Disposition Transported No Lights/[place] Dispatch Reason Falls Transported To [facility] Narrative [facility] medic 41 was dispatched emergently to a residence for a fall. Upon arrival at the scene, this clinical documentation clerk and crew were granted access to the facility by another resident. This crew went to the patients' apartment door [address] [address] EMS Patient Care Report Name: FELICITY BENJAMIN Room #: 462-P ADM IN Shan#: [id number] Admission: 01/18/22 Attend Phys: Oliver Quiros DO Discharge: Date of : 51 Report #: [id number] and gained access with a flowers provided by a resident. Upon entering the residence a strong odor was noticed. The patient was found lying supine in her bed. As this clinical documentation clerk approached, the patient tracked and responded appropriately. The patients' mental status was immediately assessed and was found to be intact. The patient gave consent to assessment, treatment, and transport. A SAMPLE and OPQRST history was obtained. The patient stated that she had several falls over the last three days and was experiencing leg pain in the right lower extremity. The extremity was assessed and distal PMS was found to be intact. The patient was assisted to her feet and pivoted to the EMS cot. The patient was placed in a seated position and secure with seatbelts. The patient was then loaded into the unit and the stretcher was secured in place. The clinical documentation clerk partner then spoke to the patients' daughter via phone call. Daughter expressed concern that the patient was no longer able to take care of herself. This clinical documentation clerk placed the patients leg in a position of comfort and pain was decreased. VS were obtained and transport was initiated. Radio report was called by this Chemicals Distiller to the receiving facility. Upon arrival at the facility, the patient was taken into the ER and slid onto a bed in ER RM 2. A bedside report was given to LETTER OF CREDIT DOCUMENT EXAMINER. RN was made aware of patient living conditions and care was transferred. Medic 41 cleared the call. Initial Vitals @19:20P: 77,R: 16,BP: 112/66,Pain: 10/10,GCS: 15,CO: 0,SpO2: 98,Revised Trauma: 12, @19:34P: 83,R: 16,BP: 113/61,Pain: 6/10,GCS: 15,CO: 2,SpO2: 97,Revised Trauma: 12, @19:11P: 80,R: 16,Pain: 10/10,GCS: 15, Assessments @19:10MENTAL:Person Oriented,Place Oriented,Time Oriented,Event Oriented,SKIN:HEENT:Head/Face: No Abnormalities,Neck/Airway: No Abnormalities,LUNG SOUNDS:General: No Abnormalities,ABDOMEN:General: No Abnormalities,PELVIS//GI:EXTREMITIES:Right Leg: Edema,Capillary Refill: Left Upper: 3 Sec,Capillary Refill: Left Lower: 3 Sec,Right Leg: Other,Capillary Refill: Right Upper: 3 Sec,Capillary Refill: Right Lower: 3 Sec,Left Arm: No Abnormalities,Right Arm: No Abnormalities,Left Leg: No Abnormalities,PULSE:Radial: 2+ Normal,Pedal: 2+ Normal,NEURO:No Abnormalities,@19:40MENTAL:Person Oriented,Event Oriented,Time Oriented,Place Oriented,SKIN:HEENT:Head/Face: No Abnormalities,Neck/Airway: No Abnormalities,LUNG SOUNDS:General: No Abnormalities,ABDOMEN:General: No Abnormalities,PELVIS//GI:No Abnormalities,EXTREMITIES:Right Leg: Edema,Capillary Refill: Left Upper: < 2 Sec,Capillary Refill: Left Lower: < 2 Sec,Capillary Refill: Right Upper: < 2 Sec,Capillary Refill: Right Lower: < 2 Sec,Left Arm: No Abnormalities,Right Arm: No Abnormalities,Left Leg: No Abnormalities,PULSE:Radial: 2+ Normal,Pedal: 2+ Normal,NEURO: Impression [facility] [address] [place] [address] EMS Patient Care Report Name: FELICITY BENJAMIN Room #: 462-P ADM IN Ronine.Tomasz.#: [id number] Admission: 01/18/22 Attend Phys: Oliver Quiros DO Discharge: Date of : 51 Report #: [id number] Extremity Pain Procedures @19:10 ALS Assessment Response: Unchanged @19:24 General Comments Response: Improved @19:15 Stretcher Response: Unchanged Timeline 18:45,Call Received 18:45,Dispatch Notified 18:51,Dispatched 18:51,En Route 19:02,On Scene 19:08,At Patient 19:10,ALS Assessment,Response: Unchanged 19:11,BP: / M,PULSE: 80,RR: 16 R,SPO2: Ox,ETCO2: ,BG: ,PAIN: 10,GCS: 15, 19:15,Stretcher,Response: Unchanged 19:20,BP: 112/66 M,PULSE: 77,RR: 16 R,SPO2: 98 Ox,ETCO2: ,BG: ,PAIN: 10,GCS: 15, 19:24,General Comments,Response: Improved 19:34,Depart Scene 19:34,BP: 113/61 M,PULSE: 83,RR: 16 R,SPO2: 97 Ox,ETCO2: ,BG: ,PAIN: 6,GCS: 15, 19:47,At Destination 20:36,Call Closed Disclaimer v1.1 Copyright 2021 [employer] This EMS Care Summary contains data elements from the applicable legal record (which may be displayed differently). It is designed to provide pertinent information for the following purposes: continuity of care, clinical quality, and state data reporting. The complete legal record is available to ED staff and administrators of the receiving hospital in [employer]'s Patient Tracker. All data is provided "as is."
[2022-01-18 19:54] VITALS: BP 113/79
[2022-01-18 20:53] LABS: ABSOLUTE NEUTROPHILS 4.3 thou/uL (1.4-8.2); BASOPHILS 1.4 % (0.0-2.0); EOSINOPHILS 1.8 % (0.0-3.0); HEMATOCRIT 37.7 % (37.0-47.0); HEMOGLOBIN 12.4 gm/dL (12.0-15.0); LYMPHOCYTES 32.6 % (24.0-44.0); MCH 30.8 pg (26.0-34.0); MCHC 32.8 g/dL (28.0-37.0); MCV 93.8 fL (80.0-100.0); MONOCYTES 10.1 % (1.0-8.0); PLATELET COUNT 303 thou/uL (150-400); POLYS 54.1 % (36.0-66.0); RBC 4.02 mil/uL (4.20-5.00); RDW 15.3 % (10.5-14.5)
[2022-01-18 21:24] LABS: CALCIUM 8.8 mg/dL (8.5-10.1); POTASSIUM 3.8 mmol/L (3.5-5.1)
[2022-01-18 21:35] LABS: ALBUMIN 3.4 g/dL (3.4-5.0); TOTAL BILIRUBIN 0.6 mg/dL (0.2-1.0); TOTAL PROTEIN 8.3 g/dL (6.4-8.2)
[2022-01-19 02:00] VITALS: BP 109/67
--- NOTE | 2022-01-19 03:57 | NUR ---
Pt admitted from ED at 0100 with frequent falls,dizziness and right leg pain. A/OX3-4,able to voice needs. Max assist with transfers,reports using a RW at [place]. C/o pain to right leg pain with movement denies need for pain meds. Has a small bruise on right thigh,no other skin issues noted. Voiding per bedpan. Pt requested for HS meds, Hanna MECHANICAL REPAIR WORKER notified and meds ordered. Pt on seizure precautions,fall precautions in place.Will continue to monitor pt.
[2022-01-19 06:36] LABS: CALCIUM 7.9 mg/dL (8.5-10.1); CREATININE 0.9 mg/dL (0.6-1.0); POTASSIUM 3.5 mmol/L (3.5-5.1)
--- NOTE | 2022-01-19 07:03 | EKG ---
[address] [place] [address] ELECTROCARDIOGRAM REPORT Name: FELICITY BENJAMIN Room #: 462-P ADM IN M.R.#: [id number] Admission: 01/18/22 Attend Phys: Oliver Quiros DO Discharge: Date of : 51 Report #: [id number] [facility] ED Test Date: 2022-01-18 Test Time: 20:32:53 Pat Name: FELICITY BENJAMIN Department: Room: 462 Gender: F Claim Trainee: RAYMOND : 1955 Requested By: Marley Wadsworth Order Number: [id number] MD: Ab Betancur Measurements Intervals [place] Rate: 77 P: 50 GA: 161 QRS: 20 QRSD: 92 T: 33 QT: 378 QTc: 428 Interpretive Statements Sinus rhythm Nonspecific T abnormalities, anterior leads Compared to ECG 07/06/2019 23:43:25 T-wave abnormality now present Left ventricular hypertrophy no longer present Electronically Signed On 01-19-2022 7:03:00 HOSPICE COORDINATOR by Ab Betancur [email or web address] <ELECTRONICALLY SIGNED> By: Ab Betancur MD, [facility] 01/19/22702 31 31 Ab Betancur MD, FAC /EPI
[2022-01-19 07:48] VITALS: BP 118/62
--- NOTE | 2022-01-19 10:21 | NUR ---
ASSUMED PT CARE THIS AM. PT IS ALERT & ORIENTED X4 AND FORGETFUL AT TIMES. PT HAS IV SITE ON LAC SALINE LOCKED. GIVEN PAIN MEDICATION AND SCHEDULED MEDICATION THIS AM WITHOUT DIFFICULTIES. PHYSICAL AND OCCUPATIONAL THERAPY WILL BE WORKING WITH PT TODAY. WILL FOLLOW POC.
--- NOTE | 2022-01-19 12:11 | NUR ---
PT ADMITTED RELATED TO FREQUENT FALLS; DIZZINESS; R ANKLE PAIN. CM REVIEWED CHART AND SPOKE WITH CARE TEAM. CM MET WITH PT AT BEDSIDE THIS DAY. CM REVIEWED CHART AND SPOKE WITH CARE TEAM. CM MET WITH PT AT BEDSIDE THIS DAY. PT APPEARED TO BE A&O X4. CM ROLE INTRODUCED. PT INDICATED SHE LIVES AT [facility]. SHE INDICATED SHE HAD ELEVATOR ACCESS. PT HAS HCBS THROUGH [facility] 5 DAYS A WEEK. PT INDICATED NO OTHER HH HX. PT HAD BEEN SKILLED AT [facility] FROM HERE 08/13/21. CM CONVEYED TO PT THAT CARE TEAM ARE INDICATING THAT THEY FEEL SHE WOULD BENEFIT FROM SHORT TERM POST ACUTE CARE STAY UPON DISCHARGE. PT INDICATED SHE DOESN'T WANT TO GO TO REHAB SHE DOESN'T WANT TO GIVE THEM HER SOCIAL SECURITY CHECK. CM EXPLAINED THAT SHORT TERM SKILLED REHAB WOULD BE COVERED BY HER [facility] INSURANCE THAT PT'S SOCIAL SECURITY WOULD ONLY NEED TO GO TO A FACILITY IF SHE WERE NOT ABLE TO DC HOME TO HER APARTMENT AND NEED TO TRANSITION TO USP CARE. PT INITIALLY INDICATED THAT SHE WOULD LIKE TO GO BACK TO [facility] BUT SHE THEN ASKED ABOUT FACILITIES [place]. CM INDICATED [facility] IS ON [place]. CM PROVIDED PT A [facility] SNF LIST TO REVIEW. CM FOLLOWED UP WITH PT. SHE INDICATED SHE WAS ON THE PHONE WITH HER BOYFRIEND ISAIAH AND THAT HE LIVES ON [place] AND SHE WANTS REFERRAL SENT TO [facility] FOR REVIEW FOR POSSIBLE ADMISSION. PT INDICATED CM COULD ALSO CALL HER SON AND SPEAK WITH HIM RELATED TO HER DC PLANNING NEEDS. CM FAXED REFERRAL TO [facility]. CM FOLLOWING REGARDING DC PLANNING.
[2022-01-19 19:36] VITALS: BP 133/70
--- NOTE | 2022-01-20 05:03 | NUR ---
RECEIVED CARE OF THIS PATIENT AT 1900. PATIENT ALERT AND ORIENTED X4 BUT IS CHILDLIKE IN BEHAVIOR. RAILS PADDED FOR SEIZURE PRECAUTIONS. PATIENT IS FORGETFUL. DENIES PAIN. SLEPT MOST OF NIGHT.
--- NOTE | 2022-01-20 05:11 | NUR ---
a&ox4. up ad scott. RA. brock with hematuria. denies pain. denies n&v. no other issues noted. will continue to monitor.
[2022-01-20 07:35] VITALS: BP 114/62
--- NOTE | 2022-01-20 13:48 | NUR ---
[facility] RECIEVED AUTH THIS AM FOR PT TO ADMIT. CARE TEAM INDICATED THAT PT IS MEDICALLY STABLE TO DC TO SKILLED THIS DAY. PT TESTED NEGATIVE FOR CDIFF. ORDERS COMPLETED AND FAXED TO FACILITY. CHART COPY MADE. CM COMPLETED [id number] CODE: [id number] AND PROVIDED IT TO HOSPITALIST AND FACILITY. PT IS AWARE AND AGREEABLE AND SHE NOTIFIED HER BF ISAIAH. CM ATTEMTPED PT TO PT'S SON. CM WILL REATTEMPT. VAN TRANSPORT ARRANGED FOR GYN 1T 1500. NO OTHER CM INTERVENTION INDICATED. CASE CLOSED.
--- NOTE | 2022-01-20 14:39 | NUR ---
Patient is alert and oriented x 4, sat up in the chair, used walker with gaitbelt with 1-2 assisted. Patient had a BM, and bed bath today. RN called report to [facility] rehab, patient is being merchandise pickup/receiving associate at 1430.
== END 2022-01-20 16:01 | DRG 556 ==
LOC: ER 19:50 → EROBS 22:27 → 4W 22:27 → EROBS 22:28 → 4W 01-19 00:55
PROVIDERS: Nurse Practitioner Family; Student in an Organized Health Care Education/Training Program; ADMIT Pediatrics; ATTEND Pediatrics
DX: M25.571 Pain in right ankle and joints of right foot (principal); E87.1 Hypo-osmolality and hyponatremia; M17.11 Unilateral primary osteoarthritis, right knee; R29.6 Repeated falls; M51.36 Other intervertebral disc degeneration, lumbar region; R53.81 Other malaise; Z60.2 Problems related to living alone; R19.7 Diarrhea, unspecified; R79.1 Abnormal coagulation profile; E11.9 Type 2 diabetes mellitus without complications; R42 Dizziness and giddiness; E66.01 Morbid (severe) obesity due to excess calories; G80.9 Cerebral palsy, unspecified; G40.909 Epilepsy, unspecified, not intractable, without status epilepticus; F32.A Depression, unspecified; Z20.822 Contact with and (suspected) exposure to COVID-19; Z91.81 History of falling; Z79.899 Other long term (current) drug therapy; Z79.82 Long term (current) use of aspirin; Z87.81 Personal history of (healed) traumatic fracture; Z79.84 Long term (current) use of oral hypoglycemic drugs; Z68.37 Body mass index [BMI] 37.0-37.9, adult; Z83.3 Family history of diabetes mellitus
CPT/HCPCS: 10040